=== PATIENT | female | born 1985 ===

== ENCOUNTER 2017-07-10 11:40 | Inpatient (IN) | payer MEDICAID ==
[2017-07-10 12:24] VITALS: BMI 27.4
[2017-07-10] MEDS ORDERED: Ampicillin 2 GM in Sodium Chloride 0.9% 100 ML IVPB STA (12:24)
[2017-07-10] MEDS ORDERED: Betamethasone Soluspan 30 mg/5mL Inj Susp IM ONE (12:24)
[2017-07-10] MEDS ORDERED: Magnesium Sul 40GM/1L SW 40 GM/1,000 ML ML IV ONE ×2 (12:28→12:40)
[2017-07-10] MEDS ORDERED: Magnesium Sulfate 4 gm/100 ml 4 GM/100 ML BAG IV ONE (12:28)
[2017-07-10] MEDS ORDERED: Lactated Ringer's 1,000 ML IV SCH (12:30)
--- NOTE | 2017-07-10 12:52 | OBADHP ---
Datetime: 07/10/2017 12:15 IP Chief Complaint Other: brown dischagre since last night IP Admit Plan Other: MgSO4(neuroprotection); Abx; steroids; consult MFM for transfer Admit Comment, IP Provider: 26w EDC Dec 5 from [facility] c/o brown discharge since yesterd ay. No pain. no VB. +FM care [facility] GDMA2 on Glyburide PMH: GDMA2 PSH: denies NKA POBGYNH: Denies STD; G1 present PSoH: denies smoking ETOH drugs A: IUP at 24w labor PLAN Admit to L_D Labs: CBC, type screen, UA, UC_S RPR Obtain chart MFM consult ---contacted and prep for transfer Medical condition explained to pt and she understood. Her questions answered Pelvic Type - PN: Adequate Abdomen - PN: Normal Back - PN: Normal Lungs - PN: Normal Heart - PN: Normal Thyroid - PN: Normal Neurologic - PN: Normal HEENT - PN: Normal General - PN: Normal Presentation-Admit: Vertex FHR - Baseline A Provider: 150 Membranes, Provider: Intact Comments, ACOG Physical Exam: ROS: General: no weakness; no fatigue HEENT: no RIVERA; no visual dist CV: no palpitations; no no CP GI: no N/V no diarhea No epigastric pain; non radiating : no F/U/D MS: No joint pain Pool Provider: Negative IP Hx Assessment: The History has been Reviewed and is Current Vital Signs Provider: Reviewed Vital Signs Provider Details: Syst 160 IP Chief Complaint: Other NICHD Variability Prov Fetus A: Moderate 6-25bpm NICHD Accel Fetus A IP Provider: 10X10 FHR Category Provider Fetus A: Category I NICHD Decel Fetus A IP Provider: None Dilatation, Provider: 2-3 Genitourinary Exam: Normal DTRs - PN: Normal EGA AdmitDate IP: 24.0 IP Adm Impression: , intrauterine ; Active labor; Intact Membranes IP Admit Plan: Admit to unit
[2017-07-10 13:08] LABS: BASO # 0.1 K/uL (0.0-0.2); BASO % 0.3 % (0.0-2.0); EOS # 0.1 K/uL (0.0-0.7); EOS % 0.6 % (0.0-4.0); HEMOGLOBIN 10.7 g/dL (12.0-16.0); LYMPH # 2.2 K/uL (1.0-4.3); LYMPH % 11.7 % (20.0-40.0); MEAN CELL VOLUME 91.5 fl (81.0-99.0); MEAN CORPUSCULAR HEMOGLOBIN 30.8 pg (27.0-31.0); MEAN CORPUSCULAR HGB CONC 33.7 g/dL (33.0-37.0); MEAN PLATELET VOLUME 8.4 fl (7.2-11.7); MONO # 1.1 K/uL (0.0-0.8); MONO % 5.8 % (0.0-10.0); NEUT # 15.7 K/uL (1.8-7.0); NEUT % 81.6 % (50.0-75.0); RBC 3.47 Mil/uL (3.80-5.20); RED CELL DISTRIBUTION WIDTH 13.7 % (11.5-14.5); WHITE BLOOD COUNT 19.2 K/uL (4.8-10.8)
[2017-07-10 13:36] LABS: BLOOD UREA NITROGEN 8 mg/dl (7-17); CALCIUM 9.5 mg/dL (8.4-10.2); GFR AFRICAN-AMERICAN > 60; GFR NON-AFRICAN AMERICAN > 60
[2017-07-10 18:51] VITALS: PULSE 92; TEMP 98.2; O2SAT 100
--- NOTE | 2017-07-11 07:16 | OBDCSUM ---
Datetime: 07/10/2017 14:30 Discharge Diagnosis, Provider: Labor Discharge Comment, Provider: Transferred to [facility] Discharge Diagnosis Prov Other: 26w
== END 2017-07-10 14:00 | disposition short-term general hospital (02) | DRG 778 ==
LOC: H.EROB2 11:40 → H.L&D 12:08 → H.EROB2 12:39
PROVIDERS: ADMIT Obstetrics & Gynecology; ATTEND Obstetrics & Gynecology
DX: O60.02 Preterm labor without delivery, second trimester (principal); Z3A.24 24 weeks gestation of pregnancy